=== PATIENT | female | born 1980 | race Caucasian/White ===

== ENCOUNTER 2018-10-26 14:39 | Inpatient (IN) ==
[2018-10-26 15:19] LABS: Basophils # 0.1 10*3/uL (0.0-0.2); Basophils % 0.3 % (0.0-0.8); Eosinophils # 0.1 10*3/uL (0.0-0.87); Eosinophils % 0.6 % (0.00-10.9); Hematocrit 34.1 VOL% (35.7-47.0); Hemoglobin 11.3 GM/DL (12.0-16.0); Immature Granulocytes % 0.5 %; Lymphocytes # 3.7 10*3/uL (1.4-4.0); Lymphocytes % 19.8 % (21.3-54.2); Mean Corpuscular HGB Conc 33.1 GM/DL (32-36); Mean Corpuscular Hemoglobin 30 PG (27-34); Mean Corpuscular Volume 90.9 FL (87-102); Mean Platelet Volume 10.1 FL (9.6-12.0); Monocytes # 0.9 10*3/uL (0.11-0.8); Monocytes % 4.8 % (1.7-12.7); Neutrophils # 13.9 10*3/uL (1.4-7.4); Platelet Count 491 T/CUMM (130-400); Red Blood Count 3.75 MC/CUMM (3.8-5.5); Red Cell Distribution Width 13.5 % (9.3-17.3); White Blood Count 18.8 T/CUMM (4-12)
[2018-10-26 15:27] LABS: Apearance,Urine Slightly Hazy (Clear); Bacteria,Urine Many /HPF (Few); Bilirubin,Urine Negative (Negative); Blood, Urine Small mg/dL (Negative); Glucose,Urine (UA) >=500 mg/dL (Negative); Ketones,Urine 20 mg/dL (Negative); Mucus,Urine Occasional /LPF (Occasional); Nitrite,Urine Negative (Negative); Protein,Urine Negative; RBC,Urine 16 /HPF (0-4); Squamous Epithelial Cell,Urine Occasional /HPF (0-10); Urine Color Yellow (Yellow); Urine Specific Gravity 1.026 (1.001-1.035); Urine Urobilinogen < 2.0 EU/DL (0.2-1.0); WBC,Urine 3 /HPF (0-6)
[2018-10-26 15:30] LABS: INR 0.8; PT Patient Result 9.1 SECS; Partial Thromboplastin Time 25.9 SECS (0-40)
[2018-10-26 15:51] LABS: Alanine Aminotransferase 17 U/L (13-56); Albumin 2.7 G/DL (3.4-5.0); Alkaline Phosphatase 104 U/L (45-117); Aspartate Amino Transferase 13 U/L (0-37); Bilirubin,Direct < 0.100 MG/DL (0.0-0.20); Bilirubin,Total < 0.39 MG/DL (0.2-1.0); Blood Urea Nitrogen 12 MG/DL (7-18); Calcium 8.8 MG/DL (8.5-10.1); Glucose 216 MG/DL (74-106); Potassium 4.1 MMOL/L (3.5-5.1); Sodium 136 MMOL/L (136-145); Total Protein 7.1 G/DL (6.4-8.3); Uric Acid 4.5 MG/DL (2.6-6.0)
[2018-10-26] MEDS ORDERED: FAMOTIDINE 20 MG/2 ML VIAL IV ONE (16:03)
[2018-10-26] MEDS ORDERED: CITRIC ACID/SODIUM CITRATE 30 ML UDCUP PO ONE (16:03)
[2018-10-26] MEDS ORDERED: ceFAZolin 2,000 MG in PREMIX 1 EACH IV ONE (16:03)
[2018-10-26] MEDS ORDERED: hydrALAZINE 20 MG/1 ML VIAL ONE (16:04)
[2018-10-26] MEDS ORDERED: LACTATED RINGERS 1,000 ML IV ONE (16:05)
[2018-10-26] MEDS ORDERED: CITRIC ACID/SODIUM CITRATE 30 ML UDCUP ONE (16:09)
[2018-10-26] MEDS: hydrALAZINE 20 MG/1 ML VIAL IV SCH ×2 (16:15→16:25)
[2018-10-26] MEDS ORDERED: LACTATED RINGERS 1,000 ML IV SCH ×2 (16:30→18:30)
[2018-10-26] MEDS ORDERED: MORPHINE 10 MG/10 ML VIAL ONE (16:32)
[2018-10-26] MEDS ORDERED: fentaNYL 100 MCG/2 ML VIAL ONE (16:32)
[2018-10-26] MEDS ORDERED: ONDANSETRON 4 MG/2 ML VIAL ONE (16:32)
[2018-10-26] MEDS ORDERED: BUPIVACAINE SPINAL 0.75% 2 ML AMP SPINAL ONE (16:32)
[2018-10-26] MEDS ORDERED: OXYTOCIN 10 UNIT/ML VIAL ONE ×2 (16:33→16:51)
[2018-10-26] MEDS ORDERED: OXYTOCIN/LR 30 UNIT/1,000 ML BAG IV ONE (17:11)
[2018-10-26 17:45] LABS: Cord Venous Blood HCO3 20.4 MMOL/L; Cord Venous Blood PCO2 43.3 MMHG; Cord Venous Blood PO2 23.5
[2018-10-26 17:46] LABS: Cord Arterial Blood HCO3 24.7 MMOL/L
[2018-10-26 18:07] LABS: Hepatitis A Ab IgM Quant 0.14 Index; Hepatitis A Ab IgM Result Negative (Negative); Hepatitis B Core IgM Quant 0.12 Index; Hepatitis B Core IgM Result Negative (Negative); Hepatitis B Surface Ag Quant 0.34 Index; Hepatitis B Surface Ag Result Negative (Negative); Hepatitis C Virus Ab Quant 0.02 Index; Hepatitis C Virus Ab Result Negative (Negative)
[2018-10-26] MEDS ORDERED: SIMETHICONE CHEW 80 MG TABLET PO PRN (18:07)
[2018-10-26] MEDS ORDERED: MAGNESIUM HYDROXIDE SUSP 30 ML UDCUP PO PRN (18:07)
[2018-10-26] MEDS ORDERED: RHO(D) IMMUNE GLOBULIN 300 MCG SYRINGE IM ONE (18:07)
[2018-10-26] MEDS ORDERED: ACETAMINOPHEN 325 MG TABLET PO PRN (18:07)
[2018-10-26] MEDS ORDERED: DEXTROSE 50% 25 GM/50 ML VIAL IV PRN ×2 (18:07→18:26)
[2018-10-26] MEDS ORDERED: GLUCAGON 1 MG VIAL IM PRN ×2 (18:07→18:26)
[2018-10-26] MEDS ORDERED: OXYTOCIN/LR 20 UNIT/1,000 ML BAG IV ONE (18:07)
[2018-10-26 18:25] LABS: Apearance,Urine CLEAR (Clear); Bacteria,Urine Occasional /HPF (Few); Bilirubin,Urine Negative (Negative); Blood, Urine Negative (Negative); Glucose,Urine (UA) >=500 mg/dL (Negative); Ketones,Urine 20 mg/dL (Negative); Nitrite,Urine Negative (Negative); Protein,Urine Negative; RBC,Urine 3 /HPF (0-4); Squamous Epithelial Cell,Urine Occasional /HPF (0-10); Urine Color Yellow (Yellow); Urine Specific Gravity 1.027 (1.001-1.035); Urine Urobilinogen < 2.0 EU/DL (0.2-1.0); WBC,Urine <1 /HPF (0-6)
[2018-10-26] MEDS: HYDROmorphone 2 MG/1 ML VIAL IV PRN ×2 (19:20→23:36)
[2018-10-26] MEDS: KETOROLAC 30 MG/1 ML VIAL IV PRN (20:44)
[2018-10-26] MEDS: INSULIN REGULAR 100 UNIT/ML SUBCUT SCH (21:00)
[2018-10-26] MEDS: DOCUSATE SODIUM 100 MG CAPSULE PO SCH (21:44)
[2018-10-26 22:03] LABS: Barbiturates Screen,Urine Negative (Negative); Benzodiazepines Screen,Urine Negative (Negative); Cannabinoid Screen,Urine Negative (Negative); Opiate Screen,Urine Positive (Negative); Phencyclidine Screen,Urine Negative (Negative)
[2018-10-26] MEDS: ONDANSETRON 4 MG/2 ML VIAL IV PRN (23:33)
[2018-10-27] MEDS: ceFAZolin 1,000 MG in SYRINGE 1 EACH IV SCH ×2 (00:05→07:55)
[2018-10-27 01:19] LABS: Basophils # 0.1 10*3/uL (0.0-0.2); Basophils % 0.4 % (0.0-0.8); Eosinophils # 0.2 10*3/uL (0.0-0.87); Eosinophils % 1.1 % (0.00-10.9); Hematocrit 34.1 VOL% (35.7-47.0); Hemoglobin 11.1 GM/DL (12.0-16.0); Immature Granulocytes % 0.6 %; Immature Granulocytes Absolute 0.14 #; Lymphocytes # 5.3 10*3/uL (1.4-4.0); Lymphocytes % 23.3 % (21.3-54.2); Mean Corpuscular HGB Conc 32.6 GM/DL (32-36); Mean Corpuscular Hemoglobin 30 PG (27-34); Mean Corpuscular Volume 91.9 FL (87-102); Mean Platelet Volume 10.6 FL (9.6-12.0); Monocytes # 1.1 10*3/uL (0.11-0.8); Monocytes % 4.7 % (1.7-12.7); Neutrophils # 15.8 10*3/uL (1.4-7.4); Neutrophils % 69.9 % (38.7-73.9); Platelet Count 463 T/CUMM (130-400); Red Blood Count 3.71 MC/CUMM (3.8-5.5); Red Cell Distribution Width 13.3 % (9.3-17.3); White Blood Count 22.6 T/CUMM (4-12)
[2018-10-27 02:04] LABS: Anisocytosis Slight; Eosinophils 1 % (0-10); Lymphocytes 22 % (20-55); Microcytosis Slight; Segmented Neutrophils 76 % (50-85); Total Cells Counted 100
[2018-10-27 02:05] LABS: Stomatocytes Slight
[2018-10-27 02:06] LABS: Howell-Jolly Bodies Slight
[2018-10-27 02:07] LABS: Spherocytes Slight
[2018-10-27 02:08] LABS: Platelet Estimate Normal
[2018-10-27] MEDS: INSULIN REGULAR 100 UNIT/ML SUBCUT SCH ×5 (03:13→22:25)
[2018-10-27] MEDS: KETOROLAC 30 MG/1 ML VIAL IV PRN ×3 (06:13→19:55)
[2018-10-27] MEDS: METOCLOPRAMIDE 10 MG/2 ML VIAL IV SCH ×2 (08:01→17:00)
[2018-10-27 09:04] LABS: Basophils # 0.1 10*3/uL (0.0-0.2); Basophils % 0.4 % (0.0-0.8); Eosinophils # 0.4 10*3/uL (0.0-0.87); Eosinophils % 1.8 % (0.00-10.9); Hematocrit 32.6 VOL% (35.7-47.0); Hemoglobin 10.7 GM/DL (12.0-16.0); Immature Granulocytes % 0.7 %; Immature Granulocytes Absolute 0.16 #; Lymphocytes # 3.5 10*3/uL (1.4-4.0); Lymphocytes % 15.5 % (21.3-54.2); Mean Corpuscular HGB Conc 32.8 GM/DL (32-36); Mean Corpuscular Hemoglobin 30 PG (27-34); Mean Corpuscular Volume 92.1 FL (87-102); Mean Platelet Volume 10.2 FL (9.6-12.0); Monocytes # 1.4 10*3/uL (0.11-0.8); Monocytes % 6.1 % (1.7-12.7); Neutrophils % 75.5 % (38.7-73.9); Platelet Count 453 T/CUMM (130-400); Red Blood Count 3.54 MC/CUMM (3.8-5.5); Red Cell Distribution Width 13.2 % (9.3-17.3); White Blood Count 22.6 T/CUMM (4-12)
[2018-10-27 09:39] LABS: Eosinophils 2 % (0-10); Hypochromasia 1+; Lymphocytes 10 % (20-55); Microcytosis Slight; Ovalocytes Slight; Platelet Estimate Adequate; Segmented Neutrophils 83 % (50-85); Total Cells Counted 100
[2018-10-27] MEDS: MAGNESIUM HYDROXIDE SUSP 30 ML UDCUP PO SCH ×2 (11:12→22:45)
[2018-10-27] MEDS: MULTIVITAMIN (PRENATAL) TABLET PO SCH (11:12)
[2018-10-27] MEDS: DOCUSATE SODIUM 100 MG CAPSULE PO SCH ×2 (11:12→22:31)
[2018-10-27] MEDS: ONDANSETRON 4 MG/2 ML VIAL IV PRN ×2 (11:35→19:48)
[2018-10-27] MEDS ORDERED: RHO(D) IMMUNE GLOBULIN 300 MCG SYRINGE IM ONE (14:30)
[2018-10-28] MEDS: IBUPROFEN 800 MG TABLET PO PRN ×3 (03:50→20:05)
[2018-10-28] MEDS: BISACODYL 10 MG SUPP RECTAL PRN (04:37)
[2018-10-28] MEDS: ONDANSETRON 4 MG/2 ML VIAL IV PRN (04:38)
[2018-10-28] MEDS: INSULIN REGULAR 100 UNIT/ML SUBCUT SCH ×4 (07:49→21:22)
[2018-10-28] MEDS: METOCLOPRAMIDE 10 MG/2 ML VIAL IV SCH ×3 (09:39→17:20)
[2018-10-28] MEDS: MAGNESIUM HYDROXIDE SUSP 30 ML UDCUP PO SCH ×2 (09:39→17:21)
[2018-10-28] MEDS: DOCUSATE SODIUM 100 MG CAPSULE PO SCH ×2 (09:39→21:09)
[2018-10-28] MEDS: MULTIVITAMIN (PRENATAL) TABLET PO SCH (10:10)
[2018-10-29] MEDS: MAGNESIUM HYDROXIDE SUSP 30 ML UDCUP PO SCH ×2 (03:14→08:19)
[2018-10-29] MEDS: IBUPROFEN 800 MG TABLET PO PRN (04:15)
[2018-10-29] MEDS: BISACODYL 10 MG SUPP RECTAL PRN (05:53)
[2018-10-29 07:43] VITALS: BP 148/80
[2018-10-29] MEDS: MULTIVITAMIN (PRENATAL) TABLET PO SCH (08:19)
[2018-10-29] MEDS: INSULIN REGULAR 100 UNIT/ML SUBCUT SCH (08:20)
[2018-10-29] MEDS: DOCUSATE SODIUM 100 MG CAPSULE PO SCH (08:20)
[2018-10-29] MEDS: METOCLOPRAMIDE 10 MG/2 ML VIAL IV SCH (08:25)
== END 2018-10-29 14:00 | disposition home or self-care (01) | DRG 540 ==
LOC: N.LDOUT 14:39 → N.LD 14:41 → N.OB 20:20
PROVIDERS: ADMIT Obstetrics & Gynecology; ATTEND Obstetrics & Gynecology